=== PATIENT | female | born 1970 | race Two or more races ===

== ENCOUNTER 2019-08-02 21:47 | Emergency (ER) | payer MEDICAID ==
[~2019-08-02] VITALS: Ht 165.1 cm; Wt 68.0 kg
--- NOTE | 2019-08-02 21:50 | NUR ---
ED Nurse Note: Patient brought in by RA from home c/o left ankle pain. Per EMS, pt twisted her ankle after drinking and taking meth. Not in any distress. VSS.
--- NOTE | 2019-08-02 21:58 | Emergency Room Report ---
History of Present Illness General Chief Complaint: Lower Extremity Injury Source: EMS Present Illness HPI Disclaimer: Please note that this report is being documented using DRAGON technology. This can lead to erroneous entry secondary to incorrect interpretation by the dictating instrument. HPI: 49-year-old female presents for evaluation of left ankle pain. Patient states she has had chronic pain in the left ankle which has been ongoing for several years. Denied any new injury today but was complaining of worsening pain. As a result of which she intentionally hit it against a pipe in an attempt to "knock it back into place." She believes it is now fractured. She admits to drinking alcohol and using methamphetamines earlier today. Denies any head injury or other injury. Denies numbness or tingling. Reporting pain over the top of the foot. Is currently a /10. Does not radiate. Denies pain in the knee or hip. Allergies: Coded Allergies: No Known Allergies (Unverified , 08/02/19) Nursing Documentation-[facility] Past Medical History: No Stated History Review of Systems All Other Systems: negative except mentioned in HPI Physical Exam Vital Signs Date Time Temp Pulse Resp B/P (MAP) Pulse Ox O2 Delivery O2 Flow Rate FiO2 08/02/19 21:45 97.5 88 16 120/77 (91) 99 Room Air General: Awake and alert, no acute distress HEENT: NC/AT. EOMI. Resp: Normal work of breathing Skin: Intact. No abrasions, laceration or rash over the exposed skin MSK: Normal tone and bulk. Moving all extremities. Tenderness palpation over the lateral and medial malleolus anterior and posterior aspects as well as in the midfoot. No obvious deformity. 2+ pedal pulses bilaterally. Neuro: Awake and alert. Mentating appropriately Medical Decision Making Diagnostic Impression: Primary Impression: Ankle pain Additional Impression: Contusion, ankle ER Course 49-year-old female presents for evaluation of left ankle and foot pain after intentionally hitting it against a metal pipe earlier though did note longstanding ankle and foot pain prior to that. She does admit to alcohol and drug use earlier today. She does not appear acutely intoxicated. She is answering questions appropriately and behaving appropriately in the emergency department. X-rays of the foot and ankle were obtained. No evidence of fracture or dislocation was appreciated. Patient was placed in an Chris wrap and discharged with Motrin. Instructed on care of these injuries. Crutches were provided as well. She can follow-up with orthopedic clinic and return to the emergency department any new or worsening symptoms. Counseled on excessive alcohol use as well as dangers of drug use. Provided resources in her paperwork to follow-up on an outpatient basis. She do not believe she requires emergent labs or advanced imaging at this time. Stable for outpatient follow- up. Other X-Ray Diagnostic Results Other X-Ray Diagnostic Results #1: X-Ray ordered: Left ankle # of Views/Limited Vs Complete: Complete Indication: Pain EP Interpretation: Yes Interpretation: no dislocation, no soft tissue swelling, no fractures Impression: No acute disease Electronically Signed by: Electronically signed by Dr. Cruz Rivas Other X-Ray Diagnostic Results #2: X-Ray ordered: Left foot # of Views/Limited Vs Complete: Complete Indication: Pain EP Interpretation: Yes Interpretation: no dislocation, no soft tissue swelling, no fractures Impression: No acute disease Electronically Signed by: Electronically signed by Dr. Cruz Rivas Reevaluation Time: 03:16 Last Vital Signs Date Time Temp Pulse Resp B/P (MAP) Pulse Ox O2 Delivery O2 Flow Rate FiO2 08/02/19 21:45 97.5 88 16 120/77 (91) 99 Room Air Reevaluation Impression No evidence of fracture dislocation on x-ray. Patient was allowed to sleep in the emergency department approximately 5-1/2 hours. She is now awake alert and ambulating with steady gait. Can follow-up on an outpatient basis. Prescribed Motrin for pain and swelling. Discussed proper icing and elevation techniques. Chris bandage placed for comfort and stability. Can follow-up on an outpatient basis and return with new or worsening symptoms. Disposition: HOME, SELF-CARE Condition: Stable Scripts Ibuprofen* (MOTRIN*) 600 Mg Tablet 600 MG ORAL Q8H PRN for For Pain, #30 TAB 0 Refills Prov: Cruz Rivas MD 08/02/19 Cruz Rivas MD Aug 02, 2019 21:58
--- NOTE | 2019-08-02 22:02 | NUR ---
ED Nurse Note: Xray at bedside.
[2019-08-02] MEDS ORDERED: IBUPROFEN600 MG ORAL (23:37)
--- NOTE | 2019-08-02 23:51 | Diagnostic Imaging Report ---
EXAM: XR Left Foot Complete, 3 or More Views CLINICAL HISTORY: INJ TECHNIQUE: Frontal, lateral and oblique views of the left foot. COMPARISON: No relevant prior studies available. FINDINGS: Bones/joints: No acute fracture. Soft tissues: No radiodense foreign body. Soft tissue swelling. IMPRESSION: No acute fracture.
--- NOTE | 2019-08-02 23:52 | Diagnostic Imaging Report ---
EXAM: XR Left Ankle, 2 Views CLINICAL HISTORY: INJ TECHNIQUE: Frontal and lateral views of the left ankle. COMPARISON: No relevant prior studies available. FINDINGS: Bones/joints: No acute fracture. Soft tissues: No radiodense foreign body. Soft tissue swelling. IMPRESSION: No acute fracture.
--- NOTE | 2019-08-03 03:06 | NUR ---
ED Nurse Note: Pt able to walk to the restroom with steady gait.
[2019-08-03 03:25] VITALS: BP 112/69
--- NOTE | 2019-08-03 03:25 | NUR ---
ED Nurse Note: Pt cleared by ERMD for discharge. DC instructions/prescription was given to pt but patient refused to sign the dc papers. All medical deviecs such as ID band removed. Pt is AAO x4, ambulatory and left with all personal belongings. Weather appropriate clothes and snacks were provided. Offered placement options but refused.
== END 2019-08-03 03:25 | disposition home or self-care (01) ==
LOC: EDBD 21:47 → EMR 22:01
DX: S90.02XA Contusion of left ankle, initial encounter (principal); M25.572 Pain in left ankle and joints of left foot; W22.8XXA Striking against or struck by other objects, initial encounter; Y92.9 Unspecified place or not applicable
CPT/HCPCS: 73610; 73630; Z7502; 99284